=== PATIENT | male | born 1990 | race Caucasian/White ===

== ENCOUNTER 2016-09-29 23:47 | Emergency (ER) | payer MEDICAID, OTHER ==
[~2016-09-29] VITALS: Ht 175.3 cm; Wt 68.0 kg
[2016-09-29 23:51] VITALS: Ht 175.3 cm; Wt 68.0 kg
[2016-09-30] MEDS ORDERED: DIPHTH/TET/ACEL PERTUSS (ADULT) 0.5 ML VIAL IM* ONE (00:30)
--- NOTE | 2016-09-30 00:52 | RADRPT ---
PROCEDURE: XR right foot. CLINICAL INDICATION: Trauma. The patient stepped on a nail. Suspected foreign body under second toe TECHNIQUE: AP, lateral and oblique views of the right foot were obtained. COMPARISON: None. FINDINGS: Mineralization is within normal limits. No fracture or osseous lesion is identified. There is no e vidence for dislocation. Joint spaces are preserved. The soft tissues are unremarkable. There is n o evidence for radiopaque foreign body. RPTAT:HJJR IMPRESSION: Unremarkable right foot series without evidence of radiopaque foreign body. Physician Sintia Date Time Electronically viewed and signed by Physician Sintia on 09/30/2016 00:52 JR/
--- NOTE | 2016-09-30 01:01 | ERD ---
ER Documentation Chief Complaint Date/Time DATE: 09/30/16 TIME: 00:57 Chief Complaint stepped on a nail around 12 pm, c/o pain right foot HPI Is a 26-year-old male presents to the emergency department today reports of stepping on a nail approximately 12 hours prior to arrival. Patient states that he was on his job site on top of the roof when he stepped on a nail through his work boots. States he is unsure when his last tetanus was. Denies any fevers or chills. Denies any previous trauma. He is not taking any medication for the pain. ROS All systems reviewed and are negative except as per history of present illness. Medications Home Meds Active Scripts Acetaminophen* (Tylophen*) 500 Mg Capsule, 1 CAP PO Q6H Y for PAIN AND OR ELEVATED TEMP, #30 CAP Prov:JANINE JONES PA-C 09/30/16 Naproxen* (Naprosyn*) 500 Mg Tablet, 500 MG PO BID Y for PAIN AND/OR INFLAMMATION, #30 TAB Prov:JANINE JONES PA-C 09/30/16 Ciprofloxacin Hcl* (Ciprofloxacin Hcl*) 500 Mg Tablet, 500 MG PO BID for 10 Days , TAB Prov:JANINE JONES PA-C 09/30/16 Allergies Allergies: Coded Allergies: No Known Allergies (Verified Allergy, Mild, 09/29/16) PMhx/Soc Medical and Surgical Hx: pt denies Medical Hx, pt denies Surgical Hx History of Surgery: No Anesthesia Reaction: No Hx Neurological Disorder: No Hx Respiratory Disorders: No Hx Cardiac Disorders: No Hx Psychiatric Problems: No Hx Miscellaneous Medical Probl: No Hx Alcohol Use: Yes (SOCIAL) Hx Substance Use: Yes (MARIJUANA) Hx Tobacco Use: Yes Smoking Status: Current every day smoker Physical Exam Vitals Vital Signs Date Time Temp Pulse Resp B/P Pulse Ox O2 Delivery O2 Flow Rate FiO2 09/29/16 23:51 97.8 64 20 122/69 98 Physical Exam Const: No acute distress Head: Atraumatic Eyes: Normal Conjunctiva ENT: Normal External Ears, Nose and Mouth. Neck: Full range of motion..~ No meningismus. Resp: Clear to auscultation bilaterally Skin: Evidence of tiny puncture wound over metatarsal right foot. No evidence of foreign body Back: No midline or flank tenderness Ext: Right foot with evidence of tiny puncture wound over metatarsal. No evidence of foreign body Neur: Awake and alert Psych: Normal Mood and Affect Results 24 hrs Current Medications Medications (Trade) Dose Ordered Sig/Sreedhar Route PRN Reason Start Time Stop Time Status Last Admin Dose Admin Diphtheria/ Tetanus/Acell Pertussis (Adacel) 0.5 ml ONCE ONCE IM* 09/30/16 00:30 09/30/16 00:31 DC DIAGNOSTIC IMAGING REPORT Patient: FREDDIE SHARMA : 1990 Age: 26 Sex: M MR #: [id number] DOS: 09/30/16 0000 Ordering MD: JANINE JONES PA-C Location: [facility] Room/Bed: PROCEDURE: XR right foot. CLINICAL INDICATION: Trauma. The patient stepped on a nail. Suspected foreign body under second toe TECHNIQUE: AP, lateral and oblique views of the right foot were obtained. COMPARISON: None. FINDINGS: Mineralization is within normal limits. No fracture or osseous lesion is identified. There is no evidence for dislocation. Joint spaces are preserved. The soft tissues are unremarkable. There is no evidence for radiopaque foreign body. RPTAT:HJJR IMPRESSION: Unremarkable right foot series without evidence of radiopaque foreign body. Physician Sintia Date Time Electronically viewed and signed by Physician Sintia on 09/30/2016 00:52 JR/ CC: JANINE JONES PA-C Procedures/MDM This a 26-year-old male presents to the emergency department today for concerns of stepping on a nail earlier today while at his job site. Patient was not up- to-date on his tetanus and therefore he did receive a tetanus vaccine here today. Patient has full active range of motion of his ankle there is no erythema or warmth however I did obtain images to rule out a retained foreign body Patient is afebrile and otherwise well-appearing. Low suspicion for sepsis, deep space infection peer Per the radiology report images of the right foot are unremarkable. There is no evidence of radiopaque foreign body. Joint spaces are preserved. Soft tissues are unremarkable. There is no acute fracture dislocation. Patient declined pain medication here in the emergency department. Patient will be given a prescription for Cipro, Naprosyn and Tylenol. He was instructed not to participate in any sporting activities while he is taking the Cipro. He was instructed to follow-up in 48 hours for a wound check. Patient understood. At this time the patient is stable for discharge and outpatient management. Patient should follow up with their PCP in the next 1-2 days. They may return to the emergency department sooner for any persistent or worsening of symptoms. Patient understood and agreed with the plan. Departure Diagnosis: Primary Impression: Puncture wound Condition: Fair JANINE JONES PA-C Sep 30, 2016 01:01
[2016-09-30] MEDS ORDERED: CIPR500T4 PO (01:04)
[2016-09-30] MEDS ORDERED: ACET500C5 PO (01:04)
[2016-09-30] MEDS ORDERED: NAPR-260 PO (01:04)
[2016-09-30 01:20] VITALS: BP 118/79; PULSE 60; RESP 20; TEMP 97.8
== END 2016-09-30 01:22 | disposition home or self-care (01) ==
LOC: FTE 23:47
DX: S91.331A Puncture wound without foreign body, right foot, initial encounter (principal); F17.210 Nicotine dependence, cigarettes, uncomplicated; W45.0XXA Nail entering through skin, initial encounter; Y92.9 Unspecified place or not applicable; Z23 Encounter for immunization
CPT/HCPCS: 73630; 90471; 90715; Z7502

== ENCOUNTER 2017-11-18 16:34 | Emergency (ER) | END 2017-11-18 17:26 | disposition left against medical advice (07) ==

== ENCOUNTER 2018-08-10 15:34 | Emergency (ER) | payer MEDICAID ==
[~2018-08-10] VITALS: Ht 172.7 cm; Wt 65.0 kg
[~2018-08-10 15:34] MED LIST: ACET500C5 PO; CIPR500T4 PO; NAPR-985 PO
[2018-08-10 15:36] VITALS: BP 117/58; PULSE 98; RESP 17; Ht 172.7 cm; Wt 65.0 kg
--- NOTE | 2018-08-10 16:29 | ERD ---
ER Documentation Chief Complaint Chief Complaint BIB [facility] FOR EVAL OF LEFT FOOT PAIN. HPI 28-year-old male, presents to the emergency department, brought in by ambulance, complaining of sharp left foot pain over the fifth digit. The patient denies history of trauma, no history of diabetes, no local wounds. No fever or chills, no rashes. ROS All systems reviewed and are negative except as per history of present illness. Medications Home Meds Active Scripts Acetaminophen* (Tylenol*) 325 Mg Tablet, 2 TAB PO Q8 PRN for PAIN AND OR ELEVATED TEMP, #20 TAB Prov:EM BREWSTER MD 08/10/18 Ibuprofen* (Motrin*) 400 Mg Tab, 400 MG PO Q6H PRN for PAIN AND OR ELEVATED TEMP, #30 TAB Prov:EM BREWSTER MD 08/10/18 Acetaminophen* (Tylophen*) 500 Mg Capsule, 1 CAP PO Q6H PRN for PAIN AND OR ELEVATED TEMP, #30 CAP Prov:JANINE JONES PA-C 09/30/16 Naproxen* (Naprosyn*) 500 Mg Tablet, 500 MG PO BID PRN for PAIN AND/OR INFLAMMATION, #30 TAB Prov:JANINE JONES PA-C 09/30/16 Ciprofloxacin Hcl* (Ciprofloxacin Hcl*) 500 Mg Tablet, 500 MG PO BID for 10 Days, TAB Prov:JANINE JONES PA-C 09/30/16 Allergies Allergies: Coded Allergies: No Known Allergies (Verified Allergy, Mild, 09/29/16) PMhx/Soc History of Surgery: No Anesthesia Reaction: No Hx Neurological Disorder: No Hx Respiratory Disorders: No Hx Cardiac Disorders: No Hx Psychiatric Problems: No Hx Miscellaneous Medical Probl: No Hx Alcohol Use: Yes (SOCIAL) Hx Substance Use: Yes (MARIJUANA) Hx Tobacco Use: Yes FmHx Family History: No diabetes, No coronary disease Physical Exam Vitals Vital Signs Date Temp Pulse Resp B/P (MAP) Pulse Ox O2 O2 Flow FiO2 Time Delivery Rate 08/10/18 98.2 98 17 117/58 99 15:36 (77) Physical Exam Const: No acute distress Head: Atraumatic Eyes: Normal Conjunctiva ENT: Normal External Ears, Nose and Mouth. Neck: Full range of motion. No meningismus. Resp: Clear to auscultation bilaterally Cardio: Regular rate and rhythm, no murmurs Abd: Soft, non tender, non distended. Normal bowel sounds Skin: No petechiae or rashes Back: No midline or flank tenderness Ext: No cyanosis, or edema. Left foot: Fifth digit with posterior callus, no gross deformity, distal neurovascular exam intact, no evidence of infection. Neur: Awake and alert Psych: Normal Mood and Affect Results 24 hrs Current Medications Medications Dose Sig/Sreedhar Start Time Status Last (Trade) Ordered Route PRN Stop Time Admin Dose Reason Admin Ibuprofen 400 mg ONCE ONCE 08/10/18 DC 08/10/18 (Motrin) PO 17:00 16:41 08/10/18 17:01 650 mg ONCE ONCE 08/10/18 DC 08/10/18 Acetaminophen PO 17:00 16:41 (Tylenol 08/10/18 17:01 Tab) Procedures/MDM Left foot pain: no red flags. Differential diagnosis include but not limited to: sprain/strain, ligament injury, arthritis; low suspicion for fracture, dislocation, septic arthritis. Neurovascular exam grossly intact. no clinical findings suggestive of acute infectious process, no deformity, no rashes. Pertinent Data: X-rays: No fracture or dislocation Physical examination and clinical presentation consistent most likely with callus of the left fifth toe. Treatment options and clinical impression discussed with patient who agrees with management. The patient is stable to be treated outpatient and will be discharged home with recommendations for NSAIDs 3 times daily for 5 days and close monitoring. The patient was instructed to follow up with the primary care provider in the next 48h. If symptoms persist, worsen or new symptoms develop, then patient should return to the ED immediately. Instructions explained and given to patient with acknowledgment and demonstrated understanding. Disclaimer: Inadvertent spelling and grammatical errors are likely due to EHR/dictation software use and do not reflect on the overall quality of patient care. Also, please note that the electronic time recorded on this note does not necessarily reflect the actual time of the patient encounter. Departure Diagnosis: Primary Impression: Left foot pain Additional Impression: Callus of foot Condition: Stable Additional Instructions: Thank you very much for allowing us to participate in your care. Your health and safety is our top priority at [facility]. The evaluation in the emergency department has been done to rule out an acute emergency, chronic conditions like malignancy or other diseases have not been evaluated; therefore, you need to follow up with a primary care provider in the next 48h. If symptoms persist, worsen or new symptoms develop, then patient should return to the ED immediately. Call your primary care doctor TOMORROW for an appointment during the next 2-4 days and bring all the information provided. Have prescriptions filled and follow precisely the directions on the label. If the symptoms get worse and your provider is unavailable, return to the Emergency Department immediately. EM BREWSTER MD August 10, 2018 16:29
[2018-08-10] MEDS ORDERED: IBUPROFEN 200 MG TAB PO ONE (17:00)
[2018-08-10] MEDS ORDERED: ACETAMINOPHEN 325 MG TAB PO ONE (17:00)
[2018-08-10] MEDS ORDERED: IBUP-1561 PO (17:15)
[2018-08-10] MEDS ORDERED: ACET325T33 PO (17:15)
== END 2018-08-10 17:32 | disposition home or self-care (01) ==
LOC: FTE 15:34
DX: M79.672 Pain in left foot (principal); L84 Corns and callosities; Z87.891 Personal history of nicotine dependence
CPT/HCPCS: 73630; Z7502; Z7610

== ENCOUNTER 2018-08-21 17:26 | Emergency (ER) | payer MEDICAID ==
[~2018-08-21] VITALS: Wt 66.8 kg
[~2018-08-21 17:26] MED LIST changes: +ACET325T33 PO; +IBUP-1561 PO
[2018-08-21] MEDS ORDERED: IBUPROFEN 600 MG TAB PO ONE (20:00)
[2018-08-21] MEDS ORDERED: IBUP-1542 PO (20:37)
[2018-08-21] MEDS ORDERED: DOXY100T20 PO (20:37)
[2018-08-21] MEDS ORDERED: CLOT30CR24 TOP (20:37)
[2018-08-21 20:58] VITALS: BP 142/80; PULSE 77; RESP 17
--- NOTE | 2018-08-21 21:03 | ERD ---
ER Documentation Chief Complaint Chief Complaint left 5th toe infection? right hand pain HPI 28-year-old male with no significant past medical history presenting to the emergency department complaining of pain and itching in between the left fourth and fifth toes for the past 2 weeks. He reports associated pain which is constant and rated 5/10 in severity. He took no medication for relief of symptoms. He denies any fevers or chills or other symptoms at this time. Additionally, he reports right hand pain over the right third MCP after a fall yesterday. He denies any head injury or loss of consciousness. He does state he had a fracture in this area sometime ago and was never treated for it. ROS All systems reviewed and are negative except as per history of present illness. Medications Home Meds Active Scripts Clotrimazole* (Clotrimazole* AF) 1% - 30 Gm Cream.gm., 1 APPLIC TOP BID for 7 Days, #1 TUB Prov:RUSSELL NELSON PA-C 08/21/18 Doxycycline Hyclate* (Doxycycline Hyclate*) 100 Mg Tablet.dr, 100 MG PO BID for 10 Days, TAB Prov:RUSSELL NELSON PA-C 08/21/18 Ibuprofen* (Motrin*) 600 Mg Tab, 600 MG PO Q6, #30 TAB Prov:RUSSELL NELSON PA-C 08/21/18 Acetaminophen* (Tylenol*) 325 Mg Tablet, 2 TAB PO Q8 PRN for PAIN AND OR ELEVATED TEMP, #20 TAB Prov:EM BREWSTER MD 08/10/18 Ibuprofen* (Motrin*) 400 Mg Tab, 400 MG PO Q6H PRN for PAIN AND OR ELEVATED TEMP, #30 TAB Prov:EM BREWSTER MD 08/10/18 Acetaminophen* (Tylophen*) 500 Mg Capsule, 1 CAP PO Q6H PRN for PAIN AND OR ELEVATED TEMP, #30 CAP Prov:JANINE JONES PA-C 09/30/16 Naproxen* (Naprosyn*) 500 Mg Tablet, 500 MG PO BID PRN for PAIN AND/OR INFLAMM ATION, #30 TAB Prov:JANINE JONES PA-C 09/30/16 Ciprofloxacin Hcl* (Ciprofloxacin Hcl*) 500 Mg Tablet, 500 MG PO BID for 10 Days, TAB Prov:JANINE JONES Patricia REDMOND 09/30/16 Allergies Allergies: Coded Allergies: No Known Allergies (Verified Allergy, Mild, 09/29/16) PMhx/Soc Medical and Surgical Hx: pt denies Medical Hx, pt denies Surgical Hx History of Surgery: No Anesthesia Reaction: No Hx Neurological Disorder: No Hx Respiratory Disorders: No Hx Cardiac Disorders: No Hx Psychiatric Problems: No Hx Miscellaneous Medical Probl: No Hx Alcohol Use: Yes (SOCIAL) Hx Substance Use: Yes (MARIJUANA) Hx Tobacco Use: Yes Smoking Status: Current every day smoker FmHx Family History: No diabetes Physical Exam Vitals Vital Signs Date Temp Pulse Resp B/P (MAP) Pulse Ox O2 O2 Flow FiO2 Time Delivery Rate 08/21/18 98.3 77 17 142/80 100 Room Air 20:58 (100) 08/21/18 98.5 95 18 154/79 99 17:30 (104) Physical Exam const: No acute distress Head: Atraumatic Eyes: Normal Conjunctiva ENT: Normal External Ears, Nose and Mouth. Neck: Full range of motion. No meningismus. Resp: Clear to auscultation bilaterally Cardio: Regular rate and rhythm, no murmurs Skin: No petechiae or rashes Ext: Tenderness to palpation over the MCP joint of the right third digit. No warmth or erythema. No lymphatic streaking. Patient is neurovascularly intact to the right upper extremity. Additionally, there is maceration noted interdigitally of the left third and fourth and fourth and fifth toes. Neur: Awake and alert Psych: Normal Mood and Affect Results 24 hrs Current Medications Medications Dose Sig/Sreedhar Start Time Status Last (Trade) Ordered Route PRN Stop Time Admin Dose Reason Admin Ibuprofen 600 mg ONCE ONCE 08/21/18 DC 08/21/18 (Motrin) PO 20:00 19:46 08/21/18 20:01 Procedures/MDM 28-year-old male presenting to the emergency department with signs and symptoms most consistent with right hand contusion and tinea pedis of the left foot. Patient stable and appropriate for discharge and further outpatient management. X-ray was obtained of the right hand and may be viewed above. Findings most consistent with chronic right hand injuries. Patient advised to follow-up at the [facility] hand clinic as well as orthopedics. I did discuss the findings of radiology with attending ED physician, Dr. Wyatt Martinez, who is in agreement with outpatient management. Patient was advised to return to the department immediately for any new or worsening or concerning symptoms. He was in agreement with the diagnosis, plan, need for follow-up, return precautions. Patient's blood pressure was elevated (>120/80) but appears stable without evidence of hypertension emergency or urgency. The patient is to follow-up and pursue outpatient monitoring and therapy with their primary care physician within 1 week and return immediately if they have any new, worsening, or concerning symptoms. Disclaimer: Inadvertent spelling and grammatical errors are likely due to EHR/dictation software use and do not reflect on the overall quality of patient care. Also, please note that the electronic time recorded on this note does not necessarily reflect the actual time of the patient encounter. Departure Diagnosis: Primary Impression: Tinea pedis Additional Impression: Injury of right hand Condition: Fair Patient Instructions: Contusion, Hand, Athlete'S Foot Referrals: [facility] YOU HAVE RECEIVED A MEDICAL SCREENING EXAM AND THE RESULTS INDICATE THAT YOU DO NOT HAVE A CONDITION THAT REQUIRES URGENT TREATMENT IN THE EMERGENCY DEPARTMENT. FURTHER EVALUATION AND TREATMENT OF YOUR CONDITION CAN WAIT UNTIL YOU ARE SEEN IN YOUR DOCTORS OFFICE WITHIN THE NEXT 1-2 DAYS. IT IS YOUR RESPONSIBILITY TO MAKE AN APPOINTMENT FOR FOLOW-UP CARE. IF YOU HAVE A PRIMARY DOCTOR --you should call your primary doctor and schedule an appointment IF YOU DO NOT HAVE A PRIMARY DOCTOR YOU CAN CALL OUR PHYSICIAN REFERRAL HOTLINE AT IF YOU CAN NOT AFFORD TO SEE A PHYSICIAN YOU CAN CHOSE FROM THE FOLLOWING [facility] [address] [facility] [address] [facility] [address] [facility] [address] [facility] [address] [facility]. [facility]. [address] [facility] Urgent Care 7 a.m.- 11 p.m. Every Day of the Week NO APPOINTMENT OR AUTHORIZATION NEEDED SO [facility] Hours: Mon-Fri 9:00 AM - 5:00 PM Additional Instructions: SPECIALIST: YOU HAVE A MEDICAL CONDITION WHICH REQUIRES YOU TO SEE A SPECIALIST WITHIN THE NEXT 1-2 DAYS. PLEASE FOLLOW UP WITH YOUR PRIMARY PHYSICIAN FOR REFFERAL.IF YOU DO NOT HAVE A PRIMARY CARE PHYSICIAN AND/OR YOU CAN NOT AFFORD TO SEE A PHYSICIAN THE FOLLOWING RESOURCES HAVE BEEN SUPPLIED TO YOU. IT IS YOUR RESPONSIBILITY TO BE SEEN BY THE SPECIALIST: HAND SURGEON/ORTHOPEDICS RUSSELL NELSON PA-C August 21, 2018 21:03
== END 2018-08-21 20:58 | disposition home or self-care (01) ==
LOC: FTE 17:26
DX: S60.221A Contusion of right hand, initial encounter (principal); B35.3 Tinea pedis; F17.210 Nicotine dependence, cigarettes, uncomplicated; W18.39XA Other fall on same level, initial encounter; Y92.9 Unspecified place or not applicable
CPT/HCPCS: 73130; Z7502; Z7610